=== PATIENT | male | born 1975 | race Caucasian/White ===

== ENCOUNTER → 2022-12-23 15:50 | Outpatient (BNVA) | payer OTHER, SELFPAY | PROVIDERS: Visit Provider Nurse Practitioner Family | DX: R50.9 Fever, unspecified (principal); J06.9 Acute upper respiratory infection, unspecified; M25.50 Pain in unspecified joint; M79.10 Myalgia, unspecified site; R05.9 Cough, unspecified | CPT/HCPCS: 80053; 86618; 86666; 86757 ==

== ENCOUNTER → 2023-02-09 16:00 | Outpatient (BNVA) | payer OTHER, SELFPAY | PROVIDERS: Visit Provider Family Medicine | DX: Z00.00 Encounter for general adult medical examination without abnormal findings (principal); Z13.6 Encounter for screening for cardiovascular disorders; L30.9 Dermatitis, unspecified | CPT/HCPCS: 80053; 80061; 84443; 85025; G0103 ==

== ENCOUNTER 2024-02-10 10:38 | Outpatient (CLI) | payer OTHER, SELFPAY ==
--- NOTE | 2024-02-10 11:11 | XRR_ITS ---
PROCEDURE INFORMATION: Exam: XR Chest Exam date and time: 02/10/2024 11:17 AM Age: 48 years old Clinical indication: Cough; Patient HX: Constipated for 1 week, discomfort in back and lower abdomen TECHNIQUE: Imaging protocol: Radiologic exam of the chest. Views: 2 views. COMPARISON: CR XR KUB [id number] 02/10/2024 11:17 AM FINDINGS: Lungs: No focal consolidation. Pleural spaces: No evidence of pneumothorax. No evidence of pleural effusion. Heart/Mediastinum: Cardiomediastinal silhouette is within normal limits. Bones/joints: No evidence of acute osseous abnormality. XR/XR chest 2V* [id number] IMPRESSION: 1. No acute cardiopulmonary abnormality.
--- NOTE | 2024-02-10 11:11 | XRR_ITS ---
PROCEDURE INFORMATION: Exam: XR Abdomen Exam date and time: 02/10/2024 11:17 AM Age: 48 years old Clinical indication: Constipation and nausea and vomiting; Patient HX: Constipated for 1 week, discomfort in back and lower abdomen; Additional info: Nausea vomiting TECHNIQUE: Imaging protocol: Radiologic exam of the abdomen. Views: Frontal supine view of the abdomen. 1 View. COMPARISON: CR XR chest 2V* [id number] 02/10/2024 11:17 AM FINDINGS: Gastrointestinal tract: There are loops of borderline dilated small bowel in the upper abdomen and air-fluid levels in the stomach and small bowel on the upright chest radiograph raising the question of a nonspecific enteritis versus partial small bowel obstruction. No evidence of free air or pneumatosis. Bones/joints: No evidence of acute osseous abnormality. XR/XR KUB [id number] IMPRESSION: 1. Findings raising the question of a nonspecific enteritis or partial small bowel obstruction in the proper clinical setting. Consider correlation with CT for further detail.
== END 2024-02-10 10:39 | disposition home or self-care (01) ==
PROVIDERS: Visit Provider Nurse Practitioner Family
DX: R11.2 Nausea with vomiting, unspecified (principal); R93.3 Abnormal findings on diagnostic imaging of other parts of digestive tract; R05.8 Other specified cough
CPT/HCPCS: 71046; 74018

== ENCOUNTER 2024-02-10 19:00 | Emergency (ER) | payer OTHER, SELFPAY ==
[2024-02-10 19:06] VITALS: BP 174/109; PULSE 83; RESP 16; TEMP 36.3; O2SAT 97
--- NOTE | 2024-02-10 19:33 | W.ED.BACK ---
HPI - Back Pain/Injury General: Chief Complaint: Back Pain/Injury Stated Complaint: Sent over by [facility] for enema Time Seen by Provider: 02/10/24 19:13 History of Present Illness: Patient comes in with concerns for possible small bowel obstruction. States that for the past week and 1/2 to 2 weeks he has had cold symptoms including cough, congestion, nausea. States he has had very little appetite. States that he was seen a couple of days ago at the clinic where they started him on steroids and doxycycline for bronchitis. States they recommended to get a KUB secondary to decreased bowel movements, and a chest x-ray. States he went got them done today. States he was called and told he needed to come to the emergency department because of his KUB reading. The KUB was read as possible small bowel obstruction. The patient states he is not having abdominal pain. He is not vomiting, and he is able to pass gas and has had a bowel movement today that was small. I reviewed the x-ray. He does not have a significant amount of stool in his colon. Review of Systems General: Reports: 10 or more systems reviewed and unremarkable except in HPI and below Physical Exam Const: COMMON NORMALS: no acute distress, patient oriented x3, healthy appearing and alert HENMT: COMMON NORMALS: normocephalic and atraumatic HEAD & SCALP: normocephalic and atraumatic Eye: COMMON NORMALS: Equal, round and reactive pupils present and EOMs intact bilaterally PUPIL: Yes Equal, round and reactive pupils present Neck/C-Spine: COMMON NORMALS: full ROM and supple Resp: COMMON NORMALS: normal respiratory effort, No retractions and No use of accessory muscles Cardio: COMMON NORMALS: regular rate and regular rhythm RATE: regular rate RHYTHM: regular rhythm GI: COMMON NORMALS: Normal to inspection, nondistended, normoactive bowel sounds present, Soft to palpation and non-tender PALPATION: Yes Soft to palpation Extremity: COMMON NORMALS: normal to inspection and full ROM Neuro: COMMON NORMALS: patient oriented x3 SENSORIUM/ORIENTATION: Yes alert Psych: COMMON NORMALS: mental status grossly normal and cooperative Skin: COMMON NORMALS: no rashes or lesions noted and no wounds GENERAL SKIN EXAM: no rashes or lesions noted Course Vital Signs: Vital signs: Vital Signs Temperature 97.4 F L 02/10/24 19:06 Pulse Rate 83 02/10/24 19:06 Respiratory Rate 16 02/10/24 19:06 Blood Pressure 174/109 02/10/24 19:06 Pulse Oximetry 97 02/10/24 19:06 Oxygen Delivery Me thod Room Air 02/10/24 19:06 MDM - Back Pain/Injury Medical Decision Making Patient comes in with concerns for possible small bowel obstruction. States that for the past week and 1/2 to 2 weeks he has had cold symptoms including cough, congestion, nausea. States he has had very little appetite. States that he was seen a couple of days ago at the clinic where they started him on steroids and doxycycline for bronchitis. States they recommended to get a KUB secondary to decreased bowel movements, and a chest x-ray. States he went got them done today. States he was called and told he needed to come to the emergency department because of his KUB reading. The KUB was read as possible small bowel obstruction. The patient states he is not having abdominal pain. He is not vomiting, and he is able to pass gas and has had a bowel movement today that was small. I reviewed the x-ray. He does not have a significant amount of stool in his colon. On physical exam he is abdomen is soft, nontender. His lungs are clear to auscultation. We discussed viral respiratory infections, and the possibility of hit the cough lasting for 4 to 6 weeks after the infection. I encouraged him to hold all medications at this time as I suspect his symptoms are secondary to a viral infection. He states he is already stopped the medication as none of them was helping. Given his clinical exam and the x-ray findings I do not see signs or evidence of a bowel obstruction. I talked to the patient about symptoms that should prompt immediate return to the emergency department. We discussed not doing a CT scan at this time which he is agreeable to. He states he does not want a CAT scan, enema, or aggressive workup. Will discharge at this time with precautions to return for worsening or changing symptoms. No radiology studies performed this visit Discharge Plan Discharge Patient Disposition: Home Clinical Impression: Viral respiratory infection Condition: Stable Prescriptions: No Action triamcinolone acetonide 0.1 % cream 1 applic topical BID Qty: 30 1RF Discharge Orders: Discharge ED (Routine); Ordered 02/10/24 Ordered By: Bhupendra Payne Referrals: Billie Kruse MD [Primary Care Provider] - Patient Instructions: Upper Respiratory Infection (DC) Coding Level of Care Code ED Receptionist Telephone Operator for Gamaliel Schilling
== END 2024-02-10 19:53 | disposition home or self-care (01) ==
PROVIDERS: Emergency Provider Emergency Medicine; PCP Family Medicine
DX: J98.8 Other specified respiratory disorders (principal); B34.9 Viral infection, unspecified
CPT/HCPCS: 99281